=== PATIENT | female | born 1960 | race Caucasian/White ===

== ENCOUNTER 2016-06-17 12:39 | Emergency (ER) | payer OTHER, MEDICAID ==
[~2016-06-17] VITALS: Ht 177.8 cm; Wt 95.3 kg
--- NOTE | 2016-06-17 13:50 | RAD ---
Portable chest, 06/17/2016: History: Asthma, COPD, hyperglycemia Comparison is made to a study from 03/26/2009. The heart size and pulmonary vascularity are normal. There is an unchanged right basilar pulmonary nodule which is probably a granuloma. There is minimal linear scarring in the left base. No acute infiltrate is seen. There is no evidence of pleural fluid. Mild spurring is present in the spine. IMPRESSION: No acute cardiopulmonary abnormality is detected.
--- NOTE | 2016-06-17 14:02 | PHYS DOC ---
Past Medical History Past Medical History: Asthma, COPD, Diabetes-Type II, Hypertension, Other Past Surgical History: Cholecystectomy, Other Additional Past Surgical Histo: OSTOMY Alcohol Use: None Drug Use: None Adult General Chief Complaint Chief Complaint: BLOOD SUGAR PROBLEM HPI HPI Patient is a 55 year old female who presents with hyperglycemia. She states her sugars usually run 1-200 and she's not been checking them very often because she is getting low on her test strips. She states last night it was around 400, he felt weak. This morning she checked it and it was in the 500 range. She states she ate a little bit of food and her sugars are still elevated. She states she's been very compliant with her oral hypoglycemic agents that she's been placed on approximately 2 years ago. Denies any fevers chills nausea vomiting chest pain shortness of breath. He does smoke tobacco regularly. Review of Systems Review of Systems Constitutional: Denies fever or chills [] Eyes: Denies change in visual acuity, redness, or eye pain [] HENT: Denies nasal congestion or sore throat [] Respiratory: Denies cough or shortness of breath [] Cardiovascular: No additional information not addressed in HPI [] GI: Denies abdominal pain, nausea, vomiting, bloody stools or diarrhea [] : Denies dysuria or hematuria [] Musculoskeletal: Denies back pain or joint pain [] Integument: Denies rash or skin lesions [] Neurologic: Denies headache, focal weakness or sensory changes [] Endocrine: Denies polyuria or polydipsia [] Current Medications Current Medications Current Medications Medications (Trade) Dose Ordered [facility] Start Time Stop Time Status Last Admin Dose Admin Sodium Chloride (Iv Sodium Chloride 0.9% 1000ml Bag) 1,000 ml @ 1,000 mls/hr 1X ONCE 06/17/16 16:00 06/17/16 16:59 06/17/16 15:31 1,000 MLS/HR Allergies Allergies Allergies Coded Allergies Type Severity Reaction Last Updated Verified garlic Allergy Intermediate Swelling 06/17/16 Yes Physical Exam Physical Exam Constitutional: Well developed, well nourished, no acute distress, non-toxic appearance. [] HENT: Normocephalic, atraumatic, bilateral external ears normal, oropharynx moist, no oral exudates, nose normal. [] Eyes: PERRLA, EOMI, conjunctiva normal, no discharge. [] Neck: Normal range of motion, no tenderness, supple, no stridor. [] Cardiovascular:Heart rate regular rhythm, no murmur [] Lungs & Thorax: Bilateral breath sounds clear to auscultation [] Abdomen: Bowel sounds normal, soft, no tenderness, no masses, no pulsatile masses. [] Skin: Warm, dry, no erythema, no rash. [] Back: No tenderness, no CVA tenderness. [] Extremities: No tenderness, no cyanosis, no clubbing, ROM intact, no edema. [] Neurologic: Alert and oriented X 3, normal motor function, normal sensory function, no focal deficits noted. [] Psychologic: Affect normal, judgement normal, mood normal. [] Current Patient Data Vital Signs Vital Signs Date Time Temp Pulse Resp B/P Pulse Ox O2 Delivery O2 Flow Rate FiO2 06/17/16 13:18 98.6 89 22 153/82 95 Room Air 98.6 Lab Values Laboratory Tests Test 06/17/16 12:58 06/17/16 13:45 POC Urine HCG, Qualitative Hcg negative (Negative) White Blood Count 6.5x10^3/uL (4.0-11.0) Red Blood Count 4.77x10^6/uL (3.50-5.40) Hemoglobin 14.6g/dL (12.0-15.5) Hematocrit 43.4% (36.0-47.0) Mean Corpuscular Volume 91fL (79-100) Mean Corpuscular Hemoglobin 31pg (25-35) Mean Corpuscular Hemoglobin Concent 34g/dL (31-37) Red Cell Distribution Width 13.2% (11.5-14.5) Platelet Count 277x10^3/uL (140-400) Neutrophils (%) (Auto) 70% (31-73) Lymphocytes (%) (Auto) 21% (24-48) L Monocytes (%) (Auto) 7% (0-9) Eosinophils (%) (Auto) 1% (0-3) Basophils (%) (Auto) 0% (0-3) Neutrophils # (Auto) 4.5x10^3uL (1.8-7.7) Lymphocytes # (Auto) 1.4x10^3/uL (1.0-4.8) Monocytes # (Auto) 0.4x10^3/uL (0.0-1.1) Eosinophils # (Auto) 0.1x10^3/uL (0.0-0.7) Basophils # (Auto) 0.0x10^3/uL (0.0-0.2) Prothrombin Time 12.3SEC (11.7-14.0) Prothrombin Time INR 1.0 (0.8-1.1) Urine Collection Type Unknown Urine Color Yellow Urine Clarity Clear Urine pH 5.0 Urine Specific [place] >=1.030 Urine Protein Negativemg/dL (NEG-TRACE) Urine Glucose (UA) >=1000mg/dL (NEG) Urine Ketones (Stick) Tracemg/dL (NEG) Urine Blood Negative (NEG) Urine Nitrite Negative (NEG) Urine Bilirubin Negative (NEG) Urine Urobilinogen Dipstick 0.2mg/dL (0.2 mg/dL) Urine Leukocyte Esterase Small (NEG) Urine RBC Occ/HPF (0-2) Urine WBC 20-40/HPF (0-4) Urine Squamous Epithelial Cells Many/LPF Urine Bacteria Few/HPF (0-FEW) Sodium Level 131mmol/L (136-145) L Potassium Level 4.8mmol/L (3.5-5.1) Chloride Level 94mmol/L (98-107) L Carbon Dioxide Level 26mmol/L (21-32) Anion Gap 11 (6-14) Blood Urea Nitrogen 31mg/dL (7-20) H Creatinine 1.5mg/dL (0.6-1.0) H Estimated GFR (Cockcroft-Gault) 36.3 Glucose Level 590mg/dL (70-99) *H Calcium Level 9.2mg/dL (8.5-10.1) Magnesium Level 1.9mg/dL (1.8-2.4) Total Bilirubin 0.5mg/dL (0.2-1.0) Direct Bilirubin 0.1mg/dL (0.0-0.2) Aspartate Amino Transferase (AST) 11U/L (15-37) L Alanine Aminotransferase (ALT) 23U/L (14-59) Alkaline Phosphatase 82U/L (46-116) Creatine Kinase 40U/L (26-192) Creatine Kinase MB (Mass) 0.5ng/mL (0.0-3.6) Creatine Kinase MB Relative Index % (0-4) Troponin I Quantitative < 0.017ng/mL (0.000-0.055) SR-Wsj-E-Type Natriuretic Peptide 49pg/mL (0-124) Total Protein 7.5g/dL (6.4-8.2) Albumin 3.5g/dL (3.4-5.0) Lipase 335U/L (73-393) Thyroid Stimulating Hormone (TSH) 2.242uIU/mL (0.358-3.74) Serum Test, Qualitative Negative (NEG) Urine Opiates Screen Neg (NEG) Urine Methadone Screen Neg (NEG) Urine Barbiturates Neg (NEG) Urine Phencyclidine Screen Neg (NEG) Urine Amphetamine/Methamphetamine Neg (NEG) Urine Benzodiazepines Screen Neg (NEG) Urine Cocaine Screen Neg (NEG) Urine Cannabinoids Screen Neg (NEG) Urine Ethyl Alcohol Neg (NEG) Laboratory Tests 06/17/16 13:45 Laboratory Tests 06/17/16 13:45 EKG EKG EKG shows sinus rhythm with a rate of [address] elevations or T- wave inversions, normal axis, QTC 421 ms, as interpreted by me. Radiology/Procedures Radiology/Procedures [facility] [address] [place] [address] IMAGING REPORT Signed PATIENT: PRASHANTH VARGAS ACCOUNT: [id number] : 1960 LOCATION: ER AGE: 55 SEX: F EXAM STATUS: REG ER ORD. PHYSICIAN: RUSTY ORDONEZ MD REASON: hyperglycemia PROCEDURE: PORTABLE CHEST 1V Portable chest, 06/17/2016: History: Asthma, COPD, hyperglycemia Comparison is made to a study from 03/26/2009. The heart size and pulmonary vascularity are normal. There is an unchanged right basilar pulmonary nodule which is probably a granuloma. There is minimal linear scarring in the left base. No acute infiltrate is seen. There is no evidence of pleural fluid. Mild spurring is present in the spine. IMPRESSION: No acute cardiopulmonary abnormality is detected. DICTATED and SIGNED BY: OMEGA EDWARDS MD DATE: 06/17/16 3199 CC: RUSTY ORDONEZ MD; OSCAR COTTRELL MD ~ Impressions: Hyperglycemia Course & Med Decision Making Course & Med Decision Making Pertinent Labs and Imaging studies reviewed. (See chart for details) [] Dragon Disclaimer Dragon Disclaimer This electronic medical record was generated, in whole or in part, using a voice recognition dictation system. Departure Departure Impression: Primary Impression: Hyperglycemia Disposition: HOME, SELF-CARE Condition: STABLE Referrals: OSCAR COTTRELL MD (PCP) Patient Instructions: Hyperglycemia Additional Instructions: I spoke with Dr. Cottrell. He wants you to have 5 units of NovoLog insulin with each meal and 20 units of Lantus before bed. You will need to check your sugars before each meal and before bed. I'm discharging her home with insulin pens for you to take. Stop taking the Pioglitazone and Glimepiride. Please continue taking the rest of your medications. Please call Dr. Cottrell's office and schedule follow-up appointment with him within the next week. Scripts Insulin Glargine,Hum.rec.anlog (Lantus Solostar)100 Unit/1 Ml Insuln.pen20 Unit SQ QHS #15 ML Ref 1 Prov:RUSTY ORDONEZ MD 06/17/16 Insulin Aspart (Novolog Flexpen)100 Unit/1 Ml Insuln.pen5 Unit SQ TIDAC #100 SYR Prov:RUSTY ORDONEZ MD 06/17/16 RUSTY ORDONEZ MD Jun 17, 2016 14:02
[2016-06-17 14:13] LABS: BASO % 0 % (0-3); EOS % 1 % (0-3); HEMATOCRIT 43.4 % (36.0-47.0); HEMOGLOBIN 14.6 g/dL (12.0-15.5); LYMPH # 1.4 x10^3/uL (1.0-4.8); LYMPH % 21 % (24-48); MEAN CORPUSCULAR HEMOGLOBIN 31 pg (25-35); MEAN CORPUSCULAR HGB CONC 34 g/dL (31-37); MEAN CORPUSCULAR VOLUME 91 fL (79-100); MONO % 7 % (0-9); NEUT % 70 % (31-73); PLATELET COUNT 277 x10^3/uL (140-400); RED BLOOD COUNT 4.77 x10^6/uL (3.50-5.40); RED CELL DISTRIBUTION WIDTH 13.2 % (11.5-14.5); WHITE BLOOD COUNT 6.5 x10^3/uL (4.0-11.0)
[2016-06-17 14:15] LABS: BARBITURATES NEG (NEG); BENZODIAZEPINES NEG (NEG); CANNABINOIDS NEG (NEG); COCAINE NEG (NEG); METHADONE NEG (NEG); OPIATES NEG (NEG); PHENCYCLIDINE NEG (NEG)
[2016-06-17 14:18] LABS: BILIRUBIN,URINE NEGATIVE (NEG); GLUCOSE,URINE >=1000 mg/dL (NEG); NITRITE,URINE NEGATIVE (NEG); PROTEIN,URINE NEGATIVE (NEG-TRACE); UROBILINOGEN,URINE 0.2 mg/dL (0.2 mg/dL)
[2016-06-17 14:21] LABS: ETHANOL, URINE NEG (NEG); PROTHROMBIN TIME PATIENT 12.3 SEC (11.7-14.0)
[2016-06-17 14:40] LABS: ALBUMIN 3.5 g/dL (3.4-5.0); CALCIUM 9.2 mg/dL (8.5-10.1); CREATININE 1.5 mg/dL (0.6-1.0); DIRECT BILIRUBIN 0.1 mg/dL (0.0-0.2); GFR 36.3; MAGNESIUM 1.9 mg/dL (1.8-2.4); POTASSIUM 4.8 mmol/L (3.5-5.1); TOTAL BILIRUBIN 0.5 mg/dL (0.2-1.0); TOTAL PROTEIN 7.5 g/dL (6.4-8.2)
[2016-06-17 14:42] LABS: CKMB MASS 0.5 ng/mL (0.0-3.6); CREATINE KINASE 40 U/L (26-192)
[2016-06-17 14:46] LABS: BACTERIA,URINE FEW /HPF (0-FEW); RBC,URINE OCC /HPF (0-2); SQUAMOUS EPITHELIAL CELL,UR MANY /LPF; WBC,URINE 20-40 /HPF (0-4)
[2016-06-17 15:20] LABS: NEG OBC SER NEG; POS OBC SER POS
[2016-06-17] MEDS ORDERED: INSU100I17 SQ (15:45)
[2016-06-17] MEDS ORDERED: INSU100I13 SQ (15:45)
[2016-06-17 15:57] VITALS: BP 124/72
[2016-06-17] MEDS ORDERED: IV NORMAL SALINE 1000ML BAG 1,000 ML IV ONE (16:00)
[2016-06-17] MEDS ORDERED: INSULIN ASPART 300 UNITS/3 ML INSULN.PEN SQ STA (16:02)
--- NOTE | 2016-06-18 07:43 | EKG ---
[facility] [address] [place] [address] Test Date: 2016-06-18 Test Time: 05:38:55 Pat Name: PRASHANTH VARGAS Department: Room: Gender: Helper/Driver: : 1960 Requested By: RUSTY ORDONEZ Order Number: [id number] Reading MD: Alvarado Leal Measurements Intervals [place] Rate: P: TN: QRS: QRSD: T: QT: QTc: Interpretive Statements SINUS RHYTHM Electronically Signed On 06-18-2016 8:28:58 CDT by Alvarado Leal
== END 2016-06-17 16:55 | disposition home or self-care (01) ==
LOC: ER 12:39
DX: E11.65 Type 2 diabetes mellitus with hyperglycemia (principal); I10 Essential (primary) hypertension; J44.9 Chronic obstructive pulmonary disease, unspecified; Z91.018 Allergy to other foods
CPT/HCPCS: 36415; 71010; 80048; 80076; 80305; 81001; 81025; 82553; 82947; 83690; 83735; 83880; 84443; 84484; 84703; 85027; 85610; 87086; 93005; 96360; 96372; 99285; J1815; J7030; G0481

== ENCOUNTER 2017-03-25 20:10 | Emergency (ER) | payer MEDICARE, MEDICAID, OTHER ==
[2017-03-25 20:28] LABS: POC GLUCOSE 47 mg/dL (70-99)
[2017-03-25] MEDS: IV DEXTROSE 10% 1,000 ML IV ×2 (20:30)
[2017-03-25 20:36] LABS: ADD MAN DIFF? NO
[2017-03-25 20:40] LABS: BASO % 1 % (0-3); EOS # 0.1 x10^3/uL (0.0-0.7); EOS % 1 % (0-3); HEMOGLOBIN 14.8 g/dL (12.0-15.5); LYMPH % 28 % (24-48); MEAN CORPUSCULAR HEMOGLOBIN 31 pg (25-35); MEAN CORPUSCULAR HGB CONC 34 g/dL (31-37); MEAN CORPUSCULAR VOLUME 92 fL (79-100); MONO # 0.5 x10^3/uL (0.0-1.1); MONO % 8 % (0-9); NEUT # 4.4 x10^3uL (1.8-7.7); NEUT % 63 % (31-73); PLATELET COUNT 347 x10^3/uL (140-400); RED BLOOD COUNT 4.78 x10^6/uL (3.50-5.40); RED CELL DISTRIBUTION WIDTH 13.7 % (11.5-14.5)
[2017-03-25 20:48] LABS: ANION GAP 10 (6-14); BLOOD UREA NITROGEN 24 mg/dL (7-20); BUN/CREATININE RATIO 22 (6-20); CALCIUM 9.5 mg/dL (8.5-10.1); CARBON DIOXIDE 28 mmol/L (21-32); CHLORIDE 103 mmol/L (98-107); CREATININE 1.1 mg/dL (0.6-1.0); GFR 51.8; GLUCOSE 57 mg/dL (70-99); POTASSIUM 3.8 mmol/L (3.5-5.1); SODIUM 141 mmol/L (136-145)
[2017-03-25 20:54] LABS: ALBUMIN 3.9 g/dL (3.4-5.0); ALK PHOS 64 U/L (46-116); ALT (SGPT) 21 U/L (14-59); AST (SGOT) 14 U/L (15-37); TOTAL BILIRUBIN 0.4 mg/dL (0.2-1.0); TOTAL PROTEIN 7.9 g/dL (6.4-8.2)
[2017-03-25 21:46] LABS: POC GLUCOSE 110 mg/dL (70-99)
[2017-03-25] MEDS: MECLIZINE HCL 12.5 MG TABLET. PO ×2 (22:10)
[2017-03-25 22:41] LABS: POC GLUCOSE 191 mg/dL (70-99)
== END 2017-03-25 23:07 | disposition home or self-care (01) ==
LOC: ER 20:10
DX: E11.649 Type 2 diabetes mellitus with hypoglycemia without coma (principal); R11.2 Nausea with vomiting, unspecified; G51.0 Bell's palsy; I10 Essential (primary) hypertension; J43.9 Emphysema, unspecified; F17.200 Nicotine dependence, unspecified, uncomplicated; Z90.49 Acquired absence of other specified parts of digestive tract; Z93.3 Colostomy status; Z91.018 Allergy to other foods; Z79.4 Long term (current) use of insulin
CPT/HCPCS: 36415; 80053; 82962; 85025; 93005; 96360; 96361; 99285-25; J8597

== ENCOUNTER 2017-06-13 13:28 | Emergency (ER) | payer MEDICARE, MEDICAID | END 2017-06-13 14:30 | disposition home or self-care (01) | LOC: ER 13:28 | DX: K94.03 Colostomy malfunction (principal); J44.9 Chronic obstructive pulmonary disease, unspecified; I10 Essential (primary) hypertension; E11.9 Type 2 diabetes mellitus without complications; Z91.018 Allergy to other foods; Z90.49 Acquired absence of other specified parts of digestive tract; K86.89 Other specified diseases of pancreas; Y83.8 Other surgical procedures as the cause of abnormal reaction of the patient, or of later complication, without mention of misadventure at the time of the procedure | CPT/HCPCS: 99281 ==

== ENCOUNTER 2017-08-08 22:44 | Inpatient (IN) | payer MEDICARE, MEDICAID ==
[2017-08-08] MEDS: IPRATRPIUM/ALBUTEROL 0.5/2.5MG 3 ML NEBU. NEB (23:41)
[2017-08-08 23:55] LABS: ANION GAP 14 (6-14); BLOOD UREA NITROGEN 47 mg/dL (7-20); BUN/CREATININE RATIO 17 (6-20); CALCIUM 9.3 mg/dL (8.5-10.1); CARBON DIOXIDE 21 mmol/L (21-32); CHLORIDE 95 mmol/L (98-107); CREATININE 2.8 mg/dL (0.6-1.0); GFR 17.6; GLUCOSE 160 mg/dL (70-99); POTASSIUM 4.9 mmol/L (3.5-5.1); SODIUM 130 mmol/L (136-145)
[2017-08-08 23:56] LABS: BASO % 0 % (0-3); EOS % 2 % (0-3); HEMATOCRIT 29.7 % (36.0-47.0); HEMOGLOBIN 10.1 g/dL (12.0-15.5); LYMPH # 0.2 x10^3/uL (1.0-4.8); LYMPH % 26 % (24-48); MEAN CORPUSCULAR HEMOGLOBIN 31 pg (25-35); MEAN CORPUSCULAR HGB CONC 34 g/dL (31-37); MEAN CORPUSCULAR VOLUME 92 fL (79-100); MONO % 1 % (0-9); NEUT # 0.4 x10^3uL (1.8-7.7); NEUT % 70 % (31-73); PLATELET COUNT 33 x10^3/uL (140-400); RED BLOOD COUNT 3.23 x10^6/uL (3.50-5.40); RED CELL DISTRIBUTION WIDTH 13.4 % (11.5-14.5)
[2017-08-08 23:57] LABS: INR 1.3 (0.8-1.1); PROTHROMBIN TIME PATIENT 15.9 SEC (11.7-14.0)
[2017-08-08 23:59] LABS: ADD MAN DIFF? YES
[2017-08-09] LABS: WHITE BLOOD COUNT 0.6 x10^3/uL (4.0-11.0)
[2017-08-09 00:03] LABS: ALBUMIN 2.8 g/dL (3.4-5.0); ALBUMIN/GLOBULIN RATIO 0.5 (1.0-1.7); ALK PHOS 121 U/L (46-116); ALT (SGPT) 20 U/L (14-59); AST (SGOT) 11 U/L (15-37); CREATINE KINASE 21 U/L (26-192); LIPASE 33 U/L (73-393); MAGNESIUM 1.7 mg/dL (1.8-2.4); TOTAL BILIRUBIN 1.2 mg/dL (0.2-1.0); TOTAL PROTEIN 7.9 g/dL (6.4-8.2)
[2017-08-09 00:04] LABS: TROPONINI < 0.017 ng/mL (0.000-0.055)
[2017-08-09 00:05] LABS: BILIRUBIN,URINE SMALL (NEG); CLARITY,URINE CLOUDY; COLOR,URINE AMBER; GLUCOSE,URINE NEGATIVE (NEG); NITRITE,URINE NEGATIVE (NEG); PROTEIN,URINE 30 mg/dL (NEG-TRACE); UROBILINOGEN,URINE 0.2 mg/dL (0.2 mg/dL)
[2017-08-09] MEDS: ONDANSETRON PF 4 MG/2 ML VIAL. IV ×3 (00:05→23:52)
[2017-08-09] MEDS: fentaNYL PF VIAL 100 MCG/2 ML VIAL IV ×8 (00:05→23:56)
[2017-08-09 00:13] LABS: AMORPHOUS SEDIMENT,UR PRESENT /HPF; BACTERIA,URINE FEW /HPF (0-FEW); RBC,URINE 0 /HPF (0-2); SQUAMOUS EPITHELIAL CELL,UR MOD /LPF
[2017-08-09 00:19] LABS: CKMB MASS < 0.5 ng/mL (0.0-3.6); CREATINE KINASE 22 U/L (26-192)
[2017-08-09] MEDS ORDERED: ACETAMINOPHEN 325 MG TABLET. PO (00:30)
[2017-08-09 01:36] LABS: % BANDS 8 % (0-9); % EOS 3 % (0-5); % LYMPHS 27 % (24-48); % MONOS 3 % (0-10); % SEGS 59 % (35-66); PLT ESTIMATE DECREASED (ADEQUATE)
[2017-08-09 01:37] LABS: TOXIC GRANULATION SLIGHT
[2017-08-09 07:30] LABS: POC GLUCOSE 142 mg/dL (70-99)
[2017-08-09] MEDS ORDERED: CYCLOBENZAPRINE 10 MG TABLET. PO (07:45)
[2017-08-09] MEDS: INSULIN LISPRO 300 UNITS/3 ML INSULN.PEN. SQ ×3 (08:00→17:36)
[2017-08-09] MEDS ORDERED: ALBUTEROL SULFATE 2.5 MG/3 ML NEBU. NEB (08:00)
[2017-08-09] MEDS ORDERED: NON FORMULARY ITEM (Albuterol Sulfate (Ventolin Hfa Inhaler) 2 PUFF) INH (08:00)
[2017-08-09] MEDS: IPRATRPIUM/ALBUTEROL 0.5/2.5MG 3 ML NEBU. NEB ×4 (08:14→19:44)
[2017-08-09] MEDS: ONDANSETRON ODT 4 MG TAB.RAPDIS. PO ×3 (08:57→22:11)
[2017-08-09] MEDS: FAMOTIDINE 20 MG TABLET. PO (08:57)
[2017-08-09] MEDS: LISINOPRIL 20 MG TABLET PO ×2 (08:58→09:00)
[2017-08-09] MEDS ORDERED: NON FORMULARY ITEM (Tiotropium Bromide (Spiriva) 1 CAP) IH (09:00)
[2017-08-09] MEDS: IV NORMAL SALINE 1000ML BAG 1,000 ML IV ×2 (10:04→20:08)
[2017-08-09 11:37] LABS: POC GLUCOSE 192 mg/dL (70-99)
[2017-08-09] MEDS: BISACODYL 5 MG TABLET.DR. PO (12:06)
[2017-08-09 17:10] LABS: POC GLUCOSE 253 mg/dL (70-99)
[2017-08-09 20:39] LABS: POC GLUCOSE 400 mg/dL (70-99)
[2017-08-09] MEDS: INSULIN GLARGINE 300 UNITS/3 ML INSULN.PEN. SQ (22:10)
[2017-08-10] MEDS: PROCHLORPERAZINE 5 MG TABLET. PO ×2 (03:09→10:34)
[2017-08-10 04:20] LABS: ADD MAN DIFF? NO
[2017-08-10 04:46] LABS: ALBUMIN 2.3 g/dL (3.4-5.0); ALBUMIN/GLOBULIN RATIO 0.5 (1.0-1.7); ALK PHOS 100 U/L (46-116); ALT (SGPT) 16 U/L (14-59); ANION GAP 10 (6-14); AST (SGOT) 17 U/L (15-37); BLOOD UREA NITROGEN 48 mg/dL (7-20); BUN/CREATININE RATIO 17 (6-20); CALCIUM 9.2 mg/dL (8.5-10.1); CARBON DIOXIDE 21 mmol/L (21-32); CHLORIDE 93 mmol/L (98-107); CREATININE 2.8 mg/dL (0.6-1.0); GFR 17.6; GLUCOSE 332 mg/dL (70-99); MAGNESIUM 1.7 mg/dL (1.8-2.4); SODIUM 124 mmol/L (136-145); TOTAL BILIRUBIN 0.8 mg/dL (0.2-1.0); TOTAL PROTEIN 7.1 g/dL (6.4-8.2)
[2017-08-10 05:18] LABS: BASO % 0 % (0-3); EOS % 8 % (0-3); HEMATOCRIT 27.6 % (36.0-47.0); HEMOGLOBIN 9.4 g/dL (12.0-15.5); LYMPH # 0.1 x10^3/uL (1.0-4.8); LYMPH % 55 % (24-48); MEAN CORPUSCULAR HEMOGLOBIN 32 pg (25-35); MEAN CORPUSCULAR HGB CONC 34 g/dL (31-37); MEAN CORPUSCULAR VOLUME 93 fL (79-100); MONO % 10 % (0-9); NEUT % 27 % (31-73); PLATELET COUNT 34 x10^3/uL (140-400); RED BLOOD COUNT 2.98 x10^6/uL (3.50-5.40); RED CELL DISTRIBUTION WIDTH 13.2 % (11.5-14.5)
[2017-08-10 05:28] LABS: WHITE BLOOD COUNT 0.1 x10^3/uL (4.0-11.0)
[2017-08-10] MEDS: ONDANSETRON ODT 4 MG TAB.RAPDIS. PO ×3 (05:45→21:22)
[2017-08-10] MEDS: IV NORMAL SALINE 1000ML BAG 1,000 ML IV ×2 (05:45→15:15)
[2017-08-10] MEDS ORDERED: LIDOCAINE WITH 8.4% SOD BICARB 3 ML DISP.SYRIN. (07:18)
[2017-08-10] MEDS ORDERED: IOHEXOL 240 MG/ML 50ML VIAL. (07:18)
[2017-08-10] MEDS ORDERED: MIDAZOLAM HCL/PF 2 MG/2 ML VIAL. (07:36)
[2017-08-10] MEDS ORDERED: fentaNYL PF VIAL 100 MCG/2 ML VIAL (07:37)
[2017-08-10 07:44] LABS: POC GLUCOSE 273 mg/dL (70-99)
[2017-08-10] MEDS: INSULIN LISPRO 300 UNITS/3 ML INSULN.PEN. SQ ×3 (08:00→17:57)
[2017-08-10] MEDS: IPRATRPIUM/ALBUTEROL 0.5/2.5MG 3 ML NEBU. NEB ×4 (08:00→19:41)
[2017-08-10] MEDS: IOHEXOL 300 MG/ML 50 ML VIAL. IART (08:09)
[2017-08-10] MEDS: LIDOCAINE WITH 8.4% SOD BICARB 3 ML DISP.SYRIN. IJ (08:10)
[2017-08-10] MEDS: MIDAZOLAM HCL/PF 2 MG/2 ML VIAL. IV (08:11)
[2017-08-10] MEDS: fentaNYL PF VIAL 100 MCG/2 ML VIAL IV (08:11)
[2017-08-10] MEDS ORDERED: CONTRAST GIVEN. MC (08:15)
[2017-08-10] MEDS: HYDROcodone/APAP 5/325MG 1 TAB TABLET PO (10:29)
[2017-08-10] MEDS: LISINOPRIL 20 MG TABLET PO (10:29)
[2017-08-10] MEDS: FAMOTIDINE 20 MG TABLET. PO (10:29)
[2017-08-10] MEDS: TBO-FILGRASTIM 480 MCG/0.8 ML SYRINGE. SQ (10:29)
[2017-08-10 11:57] LABS: POC GLUCOSE 225 mg/dL (70-99)
[2017-08-10] MEDS: MAGNESIUM OXIDE 400 MG TABLET PO ×2 (15:29→21:22)
[2017-08-10] MEDS: POLYETHYLENE GLYCOL 3350 17 GM PACKET. PO (15:29)
[2017-08-10 17:44] LABS: POC GLUCOSE 216 mg/dL (70-99)
[2017-08-10] MEDS: INSULIN GLARGINE 300 UNITS/3 ML INSULN.PEN. SQ (21:26)
[2017-08-10 21:29] LABS: POC GLUCOSE 229 mg/dL (70-99)
[2017-08-11] MEDS: IV NORMAL SALINE 1000ML BAG 1,000 ML IV ×2 (02:33→10:41)
[2017-08-11] MEDS: HYDROcodone/APAP 5/325MG 1 TAB TABLET PO ×3 (04:14→12:34)
[2017-08-11 04:37] LABS: ADD MAN DIFF? NO
[2017-08-11 04:48] LABS: BASO % 0 % (0-3); EOS % 7 % (0-3); HEMOGLOBIN 8.3 g/dL (12.0-15.5); LYMPH % 52 % (24-48); MEAN CORPUSCULAR HEMOGLOBIN 32 pg (25-35); MEAN CORPUSCULAR HGB CONC 35 g/dL (31-37); MEAN CORPUSCULAR VOLUME 92 fL (79-100); MONO % 3 % (0-9); NEUT % 38 % (31-73); RED BLOOD COUNT 2.62 x10^6/uL (3.50-5.40); RED CELL DISTRIBUTION WIDTH 13.3 % (11.5-14.5)
[2017-08-11 04:50] LABS: WHITE BLOOD COUNT 0.1 x10^3/uL (4.0-11.0)
[2017-08-11 04:51] LABS: PLATELET COUNT 19 x10^3/uL (140-400)
[2017-08-11 05:16] LABS: ANION GAP 10 (6-14); BLOOD UREA NITROGEN 39 mg/dL (7-20); CALCIUM 8.4 mg/dL (8.5-10.1); CARBON DIOXIDE 21 mmol/L (21-32); CHLORIDE 99 mmol/L (98-107); CREATININE 2.5 mg/dL (0.6-1.0); GFR 20.1; GLUCOSE 219 mg/dL (70-99); POTASSIUM 4.8 mmol/L (3.5-5.1); SODIUM 130 mmol/L (136-145)
[2017-08-11] MEDS: ONDANSETRON ODT 4 MG TAB.RAPDIS. PO ×2 (06:15→14:00)
[2017-08-11 07:35] LABS: POC GLUCOSE 174 mg/dL (70-99)
[2017-08-11] MEDS: IPRATRPIUM/ALBUTEROL 0.5/2.5MG 3 ML NEBU. NEB ×3 (08:15→16:21)
[2017-08-11] MEDS: LISINOPRIL 20 MG TABLET PO (08:22)
[2017-08-11] MEDS: FAMOTIDINE 20 MG TABLET. PO (08:23)
[2017-08-11] MEDS: POLYETHYLENE GLYCOL 3350 17 GM PACKET. PO (08:23)
[2017-08-11] MEDS: MAGNESIUM OXIDE 400 MG TABLET PO (08:23)
[2017-08-11] MEDS: INSULIN LISPRO 300 UNITS/3 ML INSULN.PEN. SQ ×2 (08:32→12:00)
[2017-08-11] MEDS: MAGNESIUM CITRATE 296 ML SOLUTION. PO (10:40)
[2017-08-11] MEDS: TBO-FILGRASTIM 480 MCG/0.8 ML SYRINGE. SQ (10:40)
[2017-08-11] MEDS: PROCHLORPERAZINE 5 MG TABLET. PO (10:47)
[2017-08-11 11:38] LABS: POC GLUCOSE 76 mg/dL (70-99)
[2017-08-11] MEDS: fentaNYL PF VIAL 100 MCG/2 ML VIAL IV (13:43)
[2017-08-11 14:03] LABS: BASE EXCESS ABG -20 mmol/L (-3-3); HCO3 ABG 12 mmol/L (21-28); PCO2 ABG 56 mmHg (35-46); PO2 ABG 51 mmHg (75-108)
[2017-08-11 14:11] LABS: FIO2 ABG 100; PH ABG 6.95 (7.35-7.45); SAT O2 ABG 66 % (92-99)
[2017-08-11] MEDS: PIPERACILLIN/TAZOBACTAM 2.25 GM in IV NORMAL SALINE 50ML 50 ML IV (14:47)
[2017-08-11] MEDS: SODIUM BICARB ADULT 8.4% 50 MEQ/50 ML DISP.SYRIN. IV (14:49)
[2017-08-11] MEDS ORDERED: ETOMIDATE 20 MG/10 ML VIAL. IV (14:54)
[2017-08-11] MEDS ORDERED: ROCURONIUM 50 MG/5 ML VIAL. (14:55)
[2017-08-11 15:00] LABS: BASE EXCESS ABG -13 mmol/L (-3-3); HCO3 ABG 18 mmol/L (21-28); PO2 ABG 64 mmHg (75-108); SAT O2 ABG 83 % (92-99)
[2017-08-11] MEDS ORDERED: IV NORMAL SALINE 500ML BAG 500 ML IV (15:00)
[2017-08-11] MEDS ORDERED: NOREPINEPHRIN 8MG/250ML PREMIX 250 ML IV (15:00)
[2017-08-11 15:01] LABS: PH ABG 7.04 (7.35-7.45)
[2017-08-11 15:02] LABS: FIO2 ABG 100; PCO2 ABG 66 mmHg (35-46)
[2017-08-11] MEDS ORDERED: MORPHINE SULFATE 10 MG/ML VIAL. IV (16:00)
[2017-08-11] MEDS ORDERED: MORPHINE SULFATE 4 MG/ML DISP.SYRIN. IV (16:00)
== END 2017-08-11 16:44 | disposition expired | DRG 871 ==
LOC: 6 SOUTH 08-09 → ER 22:44 → 1 WEST ICU 08-11 14:44
PROC: 0F2BX0Z Change Drainage Device in Hepatobiliary Duct, External Approach (ICD-10-PCS; principal; 2017-08-10)
PROC: BF101ZZ Fluoroscopy of Bile Ducts using Low Osmolar Contrast (ICD-10-PCS; 2017-08-10)
PROC: 5A1935Z Respiratory Ventilation, Less than 24 Consecutive Hours (ICD-10-PCS; 2017-08-11)
PROC: 0BH17EZ Insertion of Endotracheal Airway into Trachea, Via Natural or Artificial Opening (ICD-10-PCS; 2017-08-11)
DX: A41.9 Sepsis, unspecified organism (principal); D61.810 Antineoplastic chemotherapy induced pancytopenia; J96.00 Acute respiratory failure, unspecified whether with hypoxia or hypercapnia; R65.21 Severe sepsis with septic shock; E43 Unspecified severe protein-calorie malnutrition; N17.9 Acute kidney failure, unspecified; K83.1 Obstruction of bile duct; E11.22 Type 2 diabetes mellitus with diabetic chronic kidney disease; C25.9 Malignant neoplasm of pancreas, unspecified; E87.1 Hypo-osmolality and hyponatremia; J44.1 Chronic obstructive pulmonary disease with (acute) exacerbation; K91.89 Other postprocedural complications and disorders of digestive system; Z66 Do not resuscitate; K57.90 Diverticulosis of intestine, part unspecified, without perforation or abscess without bleeding; E83.42 Hypomagnesemia; M19.90 Unspecified osteoarthritis, unspecified site; G89.29 Other chronic pain; N18.9 Chronic kidney disease, unspecified; I12.9 Hypertensive chronic kidney disease with stage 1 through stage 4 chronic kidney disease, or unspecified chronic kidney disease; G51.0 Bell's palsy; F17.210 Nicotine dependence, cigarettes, uncomplicated; T45.1X5A Adverse effect of antineoplastic and immunosuppressive drugs, initial encounter; Y83.8 Other surgical procedures as the cause of abnormal reaction of the patient, or of later complication, without mention of misadventure at the time of the procedure; K59.00 Constipation, unspecified; Z90.49 Acquired absence of other specified parts of digestive tract; Z93.3 Colostomy status; Z91.018 Allergy to other foods; Z80.0 Family history of malignant neoplasm of digestive organs
CPT/HCPCS: 36415; 36600; 47536; 71045; 71250; 74018; 74150; 74176; 80048; 80053; 81001; 82550; 82553; 82805; 82962; 83690; 83735; 84484; 85007; 85025; 85610; 93005; 94002; 94640; 94760; 96374; 96375; 97161-GP; 97166-GO; 97530-GP; 99152; 99285; 99285-25; C1729; C1769; J0690; J1442; J1644; J1815; J2250; J2405; J2543; J3010; J7030; J7620; Q0162; Q0164; Q9967